=== PATIENT | male | born 1935 | race African-American/Black ===

== ENCOUNTER 2018-04-16 16:47 | Outpatient (CLI) | payer MEDICARE ==
--- NOTE | 2018-04-16 17:40 | RAD ---
PA AND LATERAL CHEST X-RAY: 04/16/18 HISTORY: Preoperative evaluation. COMPARISON: 01/31/15. FINDINGS: The cardiac silhouette and pulmonary vasculature are within normal limits. Calcified granuloma is aga in seen in the right mid lung zone. Lungs are otherwise clear. There is mild left convexed curvature of the lower thoracic spine. There has been no interval change from the prior exam. IMPRESSION: No acute cardiopulmonary process. POS: [facility]
[2018-04-16 18:13] LABS: Anion Gap 10 mmol/L (10-20); BUN (Urea Nitrogen) 22 mg/dL (8.4-25.7); Calc. Creatinine Clearance 0 mL/min (70-130); Calcium 9.1 mg/dL (7.8-10.44); Carbon Dioxide 27 mmol/L (23-31); Chloride 106 mmol/L (98-107); Estimated GFR-MDRD 51; Glucose 84 mg/dL (83-110); Potassium 4.1 mmol/L (3.5-5.1); Sodium 139 mmol/L (136-145)
[2018-04-16 18:50] LABS: Anisocytosis SLIGHT = 6-15 cells (100X) (0-5/hpf); Hemoglobin 12.1 g/dL (14.0-18.0); Lymphocytes 53 % (21-51); MDiff Complete? YES; Mean Corpuscular HGB CONC 35.4 g/dL (32.0-36.0); Mean Corpuscular Hemoglobin 33.8 pg (27.0-31.0); Mean Corpuscular Volume 95.4 fL (78.0-98.0); Mean Platelet Volume 9.5 fL (7.4-10.4); Monocytes 11 % (0-10); Neutrophil 35 % (42-75); Ovalocytes SLIGHT = 2-5 cells (100X) (0-1/hpf); PLT Morphology Comment Appears Adequate; Platelet Count 130 thou/uL (130-400); Polychromasia SLIGHT = 2-3 cells (100X) (0-2/hpf); RBC Distribution Width 16.1 % (11.5-14.5); Reactive Lymphocytes 1 % (0-10); Red Blood Cell (RBC) Count 3.59 mill/uL (4.70-6.10); White Blood Cell (WBC) Count 2.5 thou/uL (4.8-10.8)
== END 2018-04-16 16:48 | disposition home or self-care (01) ==
LOC: LABBT 16:47
PROVIDERS: ATTEND Specialist
DX: Z01.818 Encounter for other preprocedural examination (principal); C90.00 Multiple myeloma not having achieved remission
CPT/HCPCS: 71046; 80048; 85025; 93005; 93010

== ENCOUNTER 2019-02-02 14:00 | Outpatient (CLI) | payer MEDICARE ==
--- NOTE | 2019-02-02 15:13 | BD ---
DEXA BONE DENSITOMETRY: (Dual energy X-ray Absorptiometry) DATE: 02/02/19 HISTORY: 83-year-old black male with multiple myeloma, not having achieved remission. COMPARISON: None available. FINDINGS: The bone mineral density (BMD) is given in grams per square centimeter (g/cm2): LUMBAR SPINE: BMD(g/cm2) T-score Z-score L1: 1.077 0.0 0.4 L2: 1.234 1.3 1.7 L3: 1.457 3.2 3.6 L4: 1.531 4.0 4.4 Total: 1.326 2.1 2.5 Although there are sclerotic degenerative changes in the lower lumbar spine associated with scoliosis , which elevates the bone mineral density, it is noted that the L1 level, which is not involved by [place] ch degenerative changes, has normal bone mineral density. HIP: Femoral neck: 0.808 -0.9 0.3 Total: 1.113 0.5 1.2 IMPRESSION: 1. The mean bone mineral density of the lumbar spine is normal. Fracture risk is not increased. 2. The bone mineral density of the femoral neck is normal. Fracture risk is not increased. JN R POS: [facility]
== END 2019-02-02 14:01 | disposition home or self-care (01) ==
LOC: BICMAMMO 14:00
PROVIDERS: ATTEND Internal Medicine Medical Oncology
DX: Z13.820 Encounter for screening for osteoporosis (principal); C90.00 Multiple myeloma not having achieved remission
CPT/HCPCS: 77080

== ENCOUNTER 2019-05-29 12:28 | Outpatient (CLI) | payer MEDICARE | END 2019-05-29 12:29 | disposition home or self-care (01) | LOC: ULT 12:28 | PROVIDERS: ATTEND Internal Medicine Medical Oncology | DX: Z51.11 Encounter for antineoplastic chemotherapy (principal); C90.00 Multiple myeloma not having achieved remission; N18.9 Chronic kidney disease, unspecified; D63.1 Anemia in chronic kidney disease; R11.2 Nausea with vomiting, unspecified; I08.1 Rheumatic disorders of both mitral and tricuspid valves | CPT/HCPCS: 93306 ==